=== PATIENT | female | born 1980 ===

== ENCOUNTER 2023-07-20 13:22 | Emergency (ER) | payer MEDICAID ==
[~2023-07-20] VITALS: Ht 172.7 cm; Wt 75.0 kg
[2023-07-20 13:55] VITALS: BP 105/66; PULSE 79; TEMP 98.1
[2023-07-20] MEDS ORDERED: ROBAXIN 50500 MG/TAB PO (15:59)
[2023-07-20] MEDS ORDERED: Ketorolac 30 MG/ML VIAL IM ONE (16:00)
[2023-07-20] MEDS ORDERED: Methocarbamol 500 MG TAB PO ONE (16:00)
== END 2023-07-20 16:39 | disposition home or self-care (01) ==
LOC: COL.ER 13:22
DX: M54.50 Low back pain, unspecified (principal); G89.29 Other chronic pain; F17.200 Nicotine dependence, unspecified, uncomplicated; Z79.1 Long term (current) use of non-steroidal anti-inflammatories (NSAID); Z79.899 Other long term (current) drug therapy

== ENCOUNTER → 2023-12-22 | Outpatient (CLI) | payer MEDICAID ==
[~2023-12-22] MED LIST: ROBAXIN 50500 MG/TAB PO
== END ==
LOC: COL.RAD 16:09
DX: M79.645 Pain in left finger(s) (principal)

== ENCOUNTER → 2024-03-07 | Outpatient (CLI) | payer MEDICAID | LOC: COL.RAD 17:14 | DX: R05.9 Cough, unspecified (principal) ==